=== PATIENT | female | born 1940 | race Caucasian/White ===

== ENCOUNTER 2016-07-19 12:33 | Observation (INO) | payer MEDICARE ==
[~2016-07-19] VITALS: Ht 167.6 cm; Wt 71.0 kg
--- NOTE | 2016-07-19 12:34 | NUR ---
Arrival: Pt wheeled to ED 3, EKG done upon arrival to room. 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 Assessment as charted.
[2016-07-19] MEDS ORDERED: ASPIRIN ONE (12:47)
[2016-07-19] MEDS ORDERED: ASPIRIN PO STA (12:47)
--- NOTE | 2016-07-19 12:51 | ER.PDOC ---
General Chief Complaint: Chest Pain-Cardiac Nature Stated Complaint: CHEST PAIN Time seen by MD: 12:50 Source: patient Exam Limitations: no limitations History of Present Illness Initial Comments Chest pain Timing/Duration: 1-3 hours Severity/Quality: moderate Radiation: jaw Nitro Today/Relief: 0.4 mg x 1 Aspirin Today: 325 mg x 1 Associated Symptoms: denies symptoms Allergies: Coded Allergies: No Known Allergies (Unverified , 07/19/16) Home Meds Reported Medications Aspirin (ASPIRIN) 81 Mg Tab.chew, 1 TAB PO DAILY, #30 TAB 3 Refills 07/19/16 Cyclosporine (RESTASIS) 1 Each Droperette, 1 EACH OP DAILY 07/19/16 Ranitidine Hcl (RANITIDINE HCL) 300 Mg Capsule, 1 CAP PO DAILY, #30 CAP 3 Refills 07/19/16 Clonidine Hcl (CLONIDINE HCL) 0.1 Mg Tablet, 1 TAB PO HS, #30 TAB 2 Refills 07/19/16 Amlodipine Besylate (AMLODIPINE BESYLATE) 5 Mg Tablet, 1 TAB PO DAILY, #30 TAB 5 Refills 07/19/16 Pitavastatin Calcium (LIVALO) 1 Mg Tablet, 1 MG PO DAILY, TABLET 07/19/16 Esomeprazole Magnesium (NEXIUM) 20 Mg Capsule.dr, 1 CAP PO DAILY, #30 CAP 2 Refills 07/19/16 Past Medical History Medical History: high cholesterol, hypertension Surgical History: hysterectomy LMP (females 10-50): hysterectomy Social History Smoking: non-smoker Alcohol Use: occassionally Drug Use: none Constitutional: no symptoms reported Respiratory: no symptoms reported Cardiovascular: see HPI Gastrointestinal: no symptoms reported Genitourinary: no symptoms reported Musculoskeletal: no symptoms reported All Other Systems: Reviewed and Negative Physical Exam General Appearance: No Apparent Distress, WD/WN Neck: Non-Tender, Full Range of Motion, Supple, Normal Inspection Respiratory: chest non-tender, lungs clear, normal breath sounds, no respiratory distress, no accessory muscle use Cardiovascular: Normal Peripheral Pulses, Regular Rate, Rhythm, No Edema, No Gallop, No JVD, No Murmur Gastrointestinal: Normal Bowel Sounds, No Organomegaly, No Pulsatile Mass, Non Tender, Soft Extremities: Normal Range of Motion, Non-Tender, Normal Inspection, No Pedal Edema, No Calf Tenderness, Normal Capillary Refill 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 Okeefe Problem Qualifiers Primary Impression: Chest pain Chest pain type: unspecified Qualified Codes: R07.9 - Chest pain, unspecified KEARA CONNER MD July 19, 2016 12:51
[2016-07-19] MEDS ORDERED: CLON0.1T PO (12:56)
[2016-07-19] MEDS ORDERED: ESOM20CA PO (12:56)
[2016-07-19] MEDS ORDERED: PITA1TAB PO (12:56)
[2016-07-19] MEDS ORDERED: CYCL1DRO OP (12:56)
[2016-07-19] MEDS ORDERED: RANI300C PO (12:56)
[2016-07-19] MEDS ORDERED: ASPI81TA2 PO (12:56)
[2016-07-19] MEDS ORDERED: AMLO5TAB2 PO (12:56)
[2016-07-19 12:57] LABS: BASOPHIL # 0.1 10^3/uL (0.0-0.1); EOSINOPHIL # 0.2 10^3/uL (0.0-0.2); EOSINOPHIL % 2.9 % (0.0-5.0); HEMATOCRIT 38.3 % (36.0-46.0); HEMOGLOBIN 12.8 g/dL (12.0-15.0); LYMPHOCYTES # 1.7 10^3/uL (1.0-4.8); LYMPHOCYTES % 29.7 % (24.0-44.0); MEAN CELL HGB 29.4 pg (26-34); MEAN CELL HGB CONCENTRATION 33.4 g/dL (33-37); MONOCYTES # 0.5 10^3/uL (0.3-0.8); MONOCYTES % 8.1 % (5.0-12.0); NEUTROPHIL # 3.4 10^3/uL (1.8-7.7); NEUTROPHILS % 58.1 % (41.0-85.0); RED CELL DISTRIBUTION WIDTH 13.5 % (11.5-14.5); WHITE BLOOD CELL 5.8 10^3/uL (4.5-11.0)
[2016-07-19] MEDS ORDERED: NITROSTAT SL PRN (13:00)
[2016-07-19 13:22] LABS: ALANINE AMINOTRANSFERASE 33 U/L (12-78); ALKALINE PHOSPHATASE 67 U/L (50-136); ASPARTATE AMINO TRANSFERASE 24 U/L (0-35); CARBON DIOXIDE 28.2 mmol/L (20.0-32); GLUCOSE 93 mg/dL (70-110)
--- NOTE | 2016-07-19 13:34 | DIREP ---
PROCEDURE:CHEST 1 VIEW COMPARISON:None. INDICATIONS:Chest pain FINDINGS: LUNGS/PLEURA:No significant pulmonary parenchymal abnormalities. No effusions. VASCULATURE:Normal. Unremarkable pulmonary vasculature. CARDIAC:Normal. No cardiac silhouette abnormality or cardiomegaly. MEDIASTINUM:Normal. No visible mass or adenopathy. BONES:Normal. No fracture or visible bony lesion. OTHER:Negative. CONCLUSION:No acute cardiopulmonary findings. Dictated by: Min Arevalo M.D. on 07/19/2016 at 01:33 PM
--- NOTE | 2016-07-19 14:05 | PRM.ACF1 ---
Date and Time Date and Time Time: 14:05 Admission Criteria Forms CHEST PAIN: OBSERVATION CARE USE THIS FORM ONLY WHEN INPATIENT ADMISSION CRITERIA ARE NOT MET. (Place X for any and all applicable criteria): Placement for observation care may be appropriate for a patient with chest pain and ANY ONE of the following (1)(2)(3)(4)(5): [x]I. Suspected cardiac ischemia with nondiagnostic initial evaluation (eg, ECG, cardiac biomarkers) requiring further immediate evaluation such as stress testing and repeat laboratory testing to clarify diagnosis []II. Other suspected diagnosis requiring observation and monitoring during diagnostic evaluation (eg, pulmonary embolus, aortic dissection, pneumothorax, pericarditis, GI bleeding) (6)(7)(8)(9) []III. Other observation care needs (Use General Criteria: Observation Care) The original [facility] [employer] content created by [facility] has been revised. The portions of the content which have been revised are identified through the use of italic text, and [facility] has neither reviewed nor approved the modified material. All other unmodified content is copyright [facility]. Please see references footnoted in the original [facility] [employer] edition 2016 KEARA CONNER MD July 19, 2016 14:05
--- NOTE | 2016-07-19 14:40 | NUR ---
Pt on unit Pt arrived to unit via wheelchair. Received report and assumed care of pt. Oriented pt to room. Fluids and snacks provided. TELE monitor applied to pt. Call light within reach. Will continue to monitor pt.
[2016-07-19 15:08] VITALS: BP 133/66
--- NOTE | 2016-07-19 18:21 | NUR ---
report received report from offgoing shift
[2016-07-19 19:37] VITALS: BP 118/69
--- NOTE | 2016-07-19 20:38 | HPH ---
ADMIT DATE: 07/19/2016 The patient is being placed under observation to Med-Surg. PRIMARY CARE PHYSICIAN: Cory Julien MD ADMITTING DIAGNOSES: 1. Chest pain with jaw pain. 2. Hypertension and hyperlipidemia. CHIEF COMPLAINT: Chest pain. HISTORY OF PRESENT ILLNESS: The patient is a very pleasant 76-year-old female who was baking a cake this morning and she started to have pain in her central jaw that started to go down her throat and into her chest. She described the pain initially as sharp pain and after that it felt like she had a lot of pressure in her chest. It stayed there and the paramedics were called and she was taken to the ER. By the time she came to the ER, the chest pain did resolve. She states that she has had prior pains in her jaw and neck before on and off, but it never went down to her chest to cause this degree of pain. She denies any fevers, no chills. The pain did not radiate down her arm. No nausea, no vomiting, no abdominal pain, no diarrhea, no constipation, no hematemesis, no hemoptysis, no melena, no hematochezia, no dysuria, no joint issues. No lethargy, no syncope reported. PAST MEDICAL HISTORY: Significant for hypertension, hyperlipidemia. She had rheumatoid arthritis diagnosed back in 1992, but it appears that she is probably in remission. She had ulcerative colitis as well too back then. She has diverticulosis. She is postmenopausal. PAST SURGICAL HISTORY: She has had a remote history partial hysterectomy and she has had a colonoscopy in 2013 with 2 polyps removed. She has had cataract surgery recently. ALLERGIES: NO KNOWN DRUG ALLERGIES. MEDICATIONS: She is on include Nexium, Zantac, clonidine, amlodipine, pitavastatin and Restasis eyedrops. FAMILY HISTORY: There is high blood pressure in the family, there is heart disease in the family, but no premature heart disease reported. SOCIAL HISTORY: She does not smoke. No illicit drugs reported. PHYSICAL EXAMINATION: VITAL SIGNS: On admission were as follows: Temperature is 98.0, pulse rate 54, respirations 20, blood pressure 176/89, however, it did drop to 133/66 and O2 sats of 98%. My physical exam is as follows: GENERAL: She is chest pain free now in no acute distress. HEENT: Oropharynx is clear. Moist mucous membranes noted. NECK: Supple. HEART: She had a 2/6 systolic murmur, most prominent in the right second intercostal space. She had an accentuated S2 with a slight diastolic murmur as well after that. PMI was not laterally displaced. LUNGS: Clear bilaterally. ABDOMEN: Good bowel sounds, soft abdomen. No rebound or guarding. EXTREMITIES: No pitting edema, 2+ distal pulses are noted. SKIN: Warm and dry. No rashes noted. LABORATORY DATA: Labs were drawn. Chemistries were normal. Cardiac enzymes negative x 1. Coags were normal. D-dimer is less than 0.19. CBC was normal. IMAGING STUDIES: Chest x-ray had no acute problems. EKG just showed first-degree AV block, sinus rhythm. ASSESSMENT: We have this female with chest pain with cardiac risk factors. We will go ahead and do serial cardiac enzymes, put her on telemetry overnight and check an H. pylori on her and we will follow her clinically and see how she does. Ana Okeefe MD DR: KELLY/yoli JOB# [id number]
[2016-07-19] MEDS ORDERED: CATAPRES PO SCH (21:00)
[2016-07-19] MEDS ORDERED: CATAPRES ONE (21:07)
[2016-07-20] VITALS: BP 117/59
[2016-07-20 04:00] VITALS: BP 115/58
--- NOTE | 2016-07-20 07:00 | NUR ---
report report given to o/c shift
--- NOTE | 2016-07-20 07:01 | NUR ---
REPORT RECEIVED FROM MEG CURIEL.
--- NOTE | 2016-07-20 07:45 | NUR ---
ASSESSMENT COMPLETED. PATIENT SITTING UP ON SIDE OF BED. DENIES PAIN OR DISCOMFORT. SKIN WARM AND DRY. RESPIRATIONS UNLABORED. TELE IN PLACE. PATIENT INDEPENDENT IN ROOM. DENIES COMPLAINTS OR UNMET NEEDS. SR UP X2. CALL LIGHT WITHIN REACH.
[2016-07-20 08:00] VITALS: BP 105/50
[2016-07-20] MEDS ORDERED: ASPIRIN PO SCH (09:00)
[2016-07-20] MEDS ORDERED: NORVASC PO SCH (09:00)
[2016-07-20] MEDS ORDERED: PROTONIX PO SCH (09:00)
[2016-07-20] MEDS ORDERED: PEPCID PO SCH (09:00)
[2016-07-20] MEDS ORDERED: RESTASIS OP SCH (09:00)
[2016-07-20] MEDS ORDERED: ASPIRIN EC PO SCH (09:00)
--- NOTE | 2016-07-20 09:30 | NUR ---
PATIENT SITTING UP VISITING WITH FAMILY. REPORTS NOT EXPERIENCING CHEST PAIN OR DISCOMFORT SINCE LEAVING ER. TELE IN PLACE. RESPIRATIONS UNLABORED. NO DISTRESS NOTED.
[2016-07-20] MEDS ORDERED: ASPIRIN ONE (09:36)
--- NOTE | 2016-07-20 11:00 | NUR ---
PATIENT INDEPENDENT IN ROOM. DENIES COMPLAINTS OR CONCERNS.
--- NOTE | 2016-07-20 12:45 | NUR ---
DISCHARGE INSTRUCTIONS GIVEN TO PATIENT. IV DISCONTINUED. PATIENT DISCHARGED WITH FAMILY. PATIENT AMBULATED OUT TO PERSONAL VEHICLE.
[2016-07-20 12:50] VITALS: BP 105/50
--- NOTE | 2016-07-20 19:56 | DSH ---
DATE OF DISCHARGE: 07/20/2016 ADMITTING DIAGNOSES: 1. Chest pain. 2. Hypertension with hyperlipidemia. DISCHARGE DIAGNOSES: Chest pain, resolved with hypertension and hyperlipidemia and GERD. HOSPITAL COURSE: The patient is a pleasant 76-year-old female who came in with an atypical story for chest pain. She had some neck pain and radiating down to her chest. By the time she came to the ER, she was chest pain free. I put her in the hospital overnight. Three sets of cardiac enzymes have been negative. EKG has sinus rhythm with no ST segment changes. She is chest pain free. She does have history of GERD and I explained to her that we needed to take a look at her heart first given the fact that she does have cardiac risk fractures. At this point, she is stable. She will be discharged. I have asked her to resume her home activity and home diet. I have asked her to follow up with her erp consultant, Dr. Martin to see if he thinks she needs a stress test at that point and a cardiac workup and if the cardiac workup is negative, I explained to her that the next step is to take a look at her GI system and to follow up with her primary care physician, Dr. Julien for referrals to get scoped if that is the case. Ana Okeefe MD DR: KELLY/yoli JOB# [id number] CC: Cory Martin MD
[2016-07-21] MEDS ORDERED: ASPIRIN EC PO SCH (09:00)
== END 2016-07-20 13:00 | disposition home or self-care (01) ==
LOC: ER 12:33 → MS 14:08
PROVIDERS: ADMIT Pediatrics; ATTEND Pediatrics
DX: R07.89 Other chest pain (principal); I10 Essential (primary) hypertension; E78.5 Hyperlipidemia, unspecified; R68.84 Jaw pain; E78.00 Pure hypercholesterolemia, unspecified; K21.9 Gastro-esophageal reflux disease without esophagitis; M54.2 Cervicalgia; Z82.49 Family history of ischemic heart disease and other diseases of the circulatory system
CPT/HCPCS: 36415 ×2; 71010; 80053; 82550; 83880; 84484 ×3; 85025; 85379; 85610; 85730; 86677; 93005; 99285; G0378 ×23

== ENCOUNTER → 2016-12-03 | Outpatient (CLI) | payer MEDICARE ==
[~2016-12-03] MED LIST: AMLO5TAB2 PO; ASPI81TA2 PO; CLON0.1T PO; CYCL1DRO OP; ESOM20CA PO; PITA1TAB PO; RANI300C PO
[2016-12-03 12:05] LABS: CALCIUM 9.6 mg/dL (8.4-10.5); CARBON DIOXIDE 29.5 mmol/L (20.0-32)
== END | disposition home or self-care (01) ==
LOC: LAB 11:13
PROVIDERS: ATTEND Internal Medicine Cardiovascular Disease
DX: E78.00 Pure hypercholesterolemia, unspecified (principal); E78.2 Mixed hyperlipidemia
CPT/HCPCS: 36415; 80053; 80061

== ENCOUNTER → 2017-02-03 | Outpatient (CLI) | payer MEDICARE ==
[~2017-02-03] MED LIST changes: +ASPI-667 PO; -ASPI81TA2 PO
[2017-02-03 11:37] LABS: CALCIUM 9.4 mg/dL (8.4-10.5); CARBON DIOXIDE 28.1 mmol/L (20.0-32)
== END | disposition home or self-care (01) ==
LOC: LAB 10:31
PROVIDERS: ATTEND Internal Medicine Cardiovascular Disease
DX: E78.00 Pure hypercholesterolemia, unspecified (principal); E78.2 Mixed hyperlipidemia
CPT/HCPCS: 36415; 80053; 80061

== ENCOUNTER → 2017-08-03 | Outpatient (CLI) | payer MEDICARE ==
[2017-08-03 10:19] LABS: CALCIUM 9.4 mg/dL (8.4-10.5); CARBON DIOXIDE 29.4 mmol/L (20.0-32)
== END | disposition home or self-care (01) ==
LOC: LAB 09:35
PROVIDERS: ATTEND Internal Medicine Cardiovascular Disease
DX: E78.00 Pure hypercholesterolemia, unspecified (principal); E78.2 Mixed hyperlipidemia
CPT/HCPCS: 36415; 80053; 80061

== ENCOUNTER → 2017-11-30 | Outpatient (CLI) | payer MEDICARE ==
[~2017-11-30] MED LIST changes: -AMLO5TAB2 PO; +AMLO5TAB7 PO
[2017-11-30 10:39] LABS: CALCIUM 9.2 mg/dL (8.4-10.5)
== END | disposition home or self-care (01) ==
LOC: LAB 10:08
PROVIDERS: ATTEND Internal Medicine Cardiovascular Disease
DX: E78.00 Pure hypercholesterolemia, unspecified (principal); E78.2 Mixed hyperlipidemia; I10 Essential (primary) hypertension; K21.9 Gastro-esophageal reflux disease without esophagitis
CPT/HCPCS: 36415; 80053; 80061

== ENCOUNTER 2018-01-10 17:54 | Emergency (ER) | payer MEDICARE ==
[~2018-01-10] VITALS: Ht 165.1 cm; Wt 71.7 kg
--- NOTE | 2018-01-10 18:10 | NUR ---
ARRIVAL PT ARRIVED AMBULATORY TO ER 4 C/O POSSIBLE UTI. PT STATES BEGAN HAVING DYSURIA AND FLANK PAIN YESTERDAY. NO ACUTE DISTRESS NOTED. EDP NOTIFIED OF PT ARRIVAL.
[2018-01-10 18:21] VITALS: BP 164/72
[2018-01-10] MEDS ORDERED: ZOFRAN ODT SL STA (18:28)
[2018-01-10] MEDS ORDERED: NORCO 10MG PO STA (18:28)
[2018-01-10] MEDS ORDERED: ROCEPHIN IM IM STA (18:28)
[2018-01-10] MEDS ORDERED: MOTRIN PO STA (18:28)
[2018-01-10] MEDS ORDERED: ROCEPHIN ONE (18:34)
[2018-01-10] MEDS ORDERED: ZOFRAN ODT ONE (18:34)
[2018-01-10] MEDS ORDERED: NORCO 10MG PO ONE (18:35)
[2018-01-10] MEDS ORDERED: MOTRIN ONE (18:35)
[2018-01-10 18:45] LABS: BASOPHIL % 0.3 % (0.0-0.2); EOSINOPHIL # 0.1 10^3/uL (0.0-0.2); HEMOGLOBIN 12.6 g/dL (12.0-15.0); LYMPHOCYTES # 0.9 10^3/uL (1.0-4.8); LYMPHOCYTES % 7.4 % (24.0-44.0); MEAN CELL HGB 29.1 pg (26-34); MEAN CORP VOLUME 88.2 fL (78-100); MEAN PLATELET VOLUME 9.8 fL (7.8-11.0); MONOCYTES # 0.7 10^3/uL (0.3-0.8); MONOCYTES % 6.3 % (5.0-12.0); NEUTROPHIL # 9.8 10^3/uL (1.8-7.7); NEUTROPHILS % 84.7 % (41.0-85.0); RED CELL DISTRIBUTION WIDTH 13.4 % (11.5-14.5); WHITE BLOOD CELL 11.6 10^3/uL (4.5-11.0)
[2018-01-10 18:53] LABS: BILIRUBIN,URINE 3 MG/DL (NEGATIVE)
[2018-01-10 18:56] LABS: CALCIUM 9.3 mg/dL (8.4-10.5)
--- NOTE | 2018-01-10 19:01 | ER.PDOC ---
General Chief Complaint: Female Urogenital Problems Stated Complaint: POSS UTI Time seen by MD: 19:00 Source: patient Exam Limitations: no limitations History of Present Illness Timing/Duration: just prior to arrival Severity/Quality: mild LMP (females 10-50): postmenopause Sexual Bell History: not active Contraceptive: none Associated Symptoms: denies symptoms Prior symptoms/Treatment: Similar symptoms previous Allergies: Coded Allergies: No Known Allergies (Unverified , 07/19/16) Home Meds Reported Medications Aspirin (ASPIRIN) 81 Mg Tab.chew, 1 TAB PO DAILY, #30 TAB 3 Refills 07/19/16 Cyclosporine (RESTASIS) 1 Each Droperette, 1 EACH OP DAILY 07/19/16 Ranitidine Hcl (RANITIDINE HCL) 300 Mg Capsule, 1 CAP PO DAILY, #30 CAP 3 Refills 07/19/16 Clonidine Hcl (CLONIDINE HCL) 0.1 Mg Tablet, 1 TAB PO HS, #30 TAB 2 Refills 07/19/16 Amlodipine Besylate (AMLODIPINE BESYLATE) 5 Mg Tablet, 1 TAB PO DAILY, #30 TAB 5 Refills 07/19/16 Pitavastatin Calcium (LIVALO) 1 Mg Tablet, 1 MG PO DAILY, TABLET 07/19/16 Esomeprazole Magnesium (NEXIUM) 20 Mg Capsule.dr, 1 CAP PO DAILY, #30 CAP 2 Refills 07/19/16 Past Medical History Medical History: hypertension Surgical History: other LMP (females 10-50): postmenopause Social History Smoking: non-smoker Alcohol Use: none Drug Use: none Reviewed Nursing Reviewed: Vital Signs, Abn. 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, No Motor/Sensory Deficits, Alert, Normal Mood/Affect, Oriented x 3 Skin: Normal Color, Warm/Dry Lymphatic: No Adenopathy Results/Orders Results/Orders Laboratory Tests Test 01/10/18 18:10 01/10/18 18:35 Urine Collection Type UNKNOWN Urine Color DARK YELLOW (YELLOW) Urine Appearance SLIGHTLY CLOUDY (CLEAR) Urine Bilirubin 3 MG/DL (NEGATIVE) Urine Ictotest NEGATIVE (NEGATIVE) Urine Ketones NEGATIVE (NEGATIVE) Urine Specific [place] 1.000 (1.005-1.035) Urine pH 7 (5.0-6.0) Urine Protein 100 mg/dL (NEGATIVE) Urine Urobilinogen 8.0 (NEGATIVE) Urine Nitrate POSITIVE (NEGATIVE) Urine Leukocyte Esterase 500/uL 2+ (NEGATIVE) Urine Blood 50 2+ (NEGATIVE) Urine RBC 2-5 RBC/HPF (NONE SEEN) Urine WBC TNTC WBC/HPF (0-2) Urine Squamous Epithelial Cells NONE SEEN #/HPF (FEW) Urine Bacteria FEW (NONE SEEN) Urine Glucose NORMAL (NEGATIVE) White Blood Count 11.6 10^3/uL (4.5-11.0) Red Blood Count 4.33 10^6/uL (4.00-5.20) Hemoglobin 12.6 g/dL (12.0-15.0) Hematocrit 38.2 % (36.0-46.0) Mean Corpuscular Volume 88.2 fL (78-100) Mean Corpuscular Hemoglobin 29.1 pg (26-34) Mean Corpuscular Hemoglobin Concent 33.0 g/dL (33-37) Red Cell Distribution Width 13.4 % (11.5-14.5) Platelet Count 282 10^3/uL (150-400) Mean Platelet Volume 9.8 fL (7.8-11.0) Neutrophils (%) (Auto) 84.7 % (41.0-85.0) Lymphocytes (%) (Auto) 7.4 % (24.0-44.0) Monocytes (%) (Auto) 6.3 % (5.0-12.0) Neutrophils # (Auto) 9.8 10^3/uL (1.8-7.7) Lymphocytes # (Auto) 0.9 10^3/uL (1.0-4.8) Monocytes # (Auto) 0.7 10^3/uL (0.3-0.8) Absolute Immature Granulocyte (auto 0.03 10^3 u/L (0-2) Eosinophils % 1.0 % (0.0-5.0) Basophils % 0.3 % (0.0-0.2) Basophils # 0.0 10^3/uL (0.0-0.1) Eosinophil Count 0.1 10^3/uL (0.0-0.2) Prothrombin Time 9.4 SEC (9.8-11.9) Prothrombin Time INR (Non-Therap) 0.9 Activated Partial Thromboplast Time 25.0 SEC (24.67-30.72) Sodium Level 140 mmol/L (132-145) Potassium Level 3.5 mmol/L (3.6-5.2) Chloride Level 102.0 mmol/L (96-109) Carbon Dioxide Level 28.0 mmol/L (20.0-32) Anion Gap 13.5 Blood Urea Nitrogen 10 mg/dL (7-18) Creatinine 0.74 mg/dL (0.59-1.40) Estimated GFR () 92.6 (>/=60) BUN/Creatinine Ratio 13.0 Glucose Level 109 mg/dL (70-110) Calcium Level 9.3 mg/dL (8.4-10.5) Total Bilirubin 0.2 mg/dL (0.2-1.0) Aspartate Amino Transf (AST/SGOT) 17 U/L (0-35) Alanine Aminotransferase (ALT/SGPT) 28 U/L (12-78) Alkaline Phosphatase 73 U/L (50-136) Total Protein 7.6 g/dL (6.4-8.2) Albumin 4.0 g/dL (3.4-5.0) Globulin 3.6 Amylase Level 51 U/L (25-115) Lipase 114 U/L (114-286) Percent Immature Gran (Cell Imm) 0.30 % (0.00-0.50) Helicobacter pylori Screen NEGATIVE (NEGATIVE) Administered Medications Medications (Trade) Dose Ordered Sig/David Route PRN Reason Start Time Stop Time Status Last Admin Dose Admin Ceftriaxone Sodium (Rocephin Im) 1,000 mg STAT STAT IM 01/10/18 18:28 01/10/18 18:30 DC 01/10/18 18:47 Acetaminophen/ Hydrocodone Bitart ([place] 10mg) 1 each STAT STAT PO 01/10/18 18:28 01/10/18 18:30 DC 01/10/18 18:47 Ondansetron HCl (Zofran Odt) 4 mg STAT STAT SL 01/10/18 18:28 01/10/18 18:30 DC 01/10/18 18:48 Ibuprofen (Motrin) 800 mg STAT STAT PO 01/10/18 18:28 01/10/18 18:30 DC 01/10/18 18:47 Departure Time of Disposition: 19:28 Disposition: 01 HOME, SELF-CARE Impression: Primary Impression: UTI (urinary tract infection) Condition: Stable Referrals: VALENTINA ANDRES MD (PCP) PRIMARY CARE PROVIDER Duration or Time Spent with Pa: 20 ZAID PARADA MD Jan 10, 2018 19:01 CARLOS ROBERT MD Jan 10, 2018 19:29
[2018-01-10 19:05] LABS: APPEARANCE,URINE SLIGHTLY CLOUDY (CLEAR); UA COLOR DARK YELLOW (YELLOW)
[2018-01-10 19:21] VITALS: BP 119/53
[2018-01-10] MEDS ORDERED: LEVAQUIN PO STA (19:47)
[2018-01-10 19:55] VITALS: BP 119/53
[2018-01-10] MEDS ORDERED: TORADOL IM ONE (20:00)
== END 2018-01-10 19:50 | disposition home or self-care (01) ==
LOC: ER 17:54
DX: N39.0 Urinary tract infection, site not specified (principal); I10 Essential (primary) hypertension; R79.1 Abnormal coagulation profile; Z79.82 Long term (current) use of aspirin; Z79.899 Other long term (current) drug therapy
CPT/HCPCS: 36415; 80053; 81000; 82150; 83690; 85025; 85610; 85730; 86677; 87086; 96372; 99284; J0696; Q0162

== ENCOUNTER → 2018-05-24 | Outpatient (CLI) | payer MEDICARE ==
[~2018-05-24] MED LIST changes: +AMLO5TAB10 PO; -AMLO5TAB7 PO
[2018-05-24 12:49] LABS: CALCIUM 9.1 mg/dL (8.4-10.5); CARBON DIOXIDE 30.4 mmol/L (20.0-32)
== END | disposition home or self-care (01) ==
LOC: LAB 11:54
PROVIDERS: ATTEND Internal Medicine Cardiovascular Disease
DX: E78.00 Pure hypercholesterolemia, unspecified (principal); E78.2 Mixed hyperlipidemia
CPT/HCPCS: 36415; 80053; 80061

== ENCOUNTER → 2018-07-21 | Outpatient (CLI) | payer MEDICARE ==
--- NOTE | 2018-07-21 12:28 | DIREP ---
PROCEDURE:XRAY SPINE LUMBAR 2-3 VWS COMPARISON:None. INDICATIONS:LOW BACK PAIN FINDINGS: ALIGNMENT:Normal. VERTEBRAE:No fractures. Anterior osteophyte formation from L2 through L5. DISK SPACES:Mild narrowing from L1-L2 through L4-L5. SACROILIAC JOINTS:Normal. OTHER:Mild arterial calcifications. CONCLUSION: 1. No acute abnormalities. 2. Mild degenerative changes from L1 through L5. 3. Atherosclerosis. Dictated by: Wilmer Hernández M.D. on 07/21/2018 at 12:25 PM
== END | disposition home or self-care (01) ==
LOC: RAD 11:25
PROVIDERS: ATTEND Pediatrics
DX: M47.816 Spondylosis without myelopathy or radiculopathy, lumbar region (principal); I70.0 Atherosclerosis of aorta; M25.78 Osteophyte, vertebrae
CPT/HCPCS: 72100

== ENCOUNTER → 2018-11-12 | Outpatient (CLI) | payer MEDICARE ==
--- NOTE | 2018-11-12 12:53 | DIREP ---
PROCEDURE:MR KNEE WITHOUT CONTRAST [Left] TECHNIQUE:Multi-planar MR images of the left knee were obtained without contrast. COMPARISON:None. INDICATIONS:STRESS FX FINDINGS: MENISCI:Large radial tear posterior horn and root of medial meniscus with horizontal tear extending into the posterior horn and body medial meniscus. Medial meniscal body is extruded along the joint line. Extensive degenerative signal seen in the lateral meniscus without articular interruption to suggest tear. CRUCIATE LIGAMENTS:Anterior and posterior cruciate ligaments demonstrate normal signal and morphology. COLLATERAL LIGAMENTS:The medial collateral ligament and lateral collateral ligamentous complex are intact. HYALINE CARTILAGE:Moderate diffuse medial joint compartment chondral thinning with areas of full-thickness fissuring. Mild lateral joint compartment articular cartilage thinning with scattered fissures. PATELLOFEMORAL:Partial-thickness chondral fissuring of the lateral patellar facet without full-thickness defects seen. Full-thickness chondral fissuring inferior trochlear sulcus. Quadriceps and patellar tendons are intact. BONES:Focal subchondral impaction fracture medial margin of the medial tibial plateau measuring 1.6 x 1.4 cm with surrounding edema. No depression fracture seen. Remainder of marrow signal is age appropriate. OTHER:Large joint effusion. Synovitis. Large septated Cheek's cyst measuring 3.2 x 2.7 x 6.7 cm AP/transverse/craniocaudal. Medial gastrocnemius tendon origin appears thickened with interstitial edema in the medial gastrocnemius muscle. CONCLUSION: 1. Subchondral impaction fracture medial tibial plateau. 2. Large radial tear medial meniscus. 3. Chondral loss and fissuring. 4. Large joint effusion. Synovitis. Large septated Cheek's cyst. 5. Question reactive edema versus grade 1 medial gastrocnemius strain. Dictated by: Prakash Herbert M.D. on 11/12/2018 at 12:40 PM
== END | disposition home or self-care (01) ==
LOC: MRI 10:05
PROVIDERS: ATTEND Orthopaedic Surgery
DX: S82.142A Displaced bicondylar fracture of left tibia, initial encounter for closed fracture (principal); S83.242A Other tear of medial meniscus, current injury, left knee, initial encounter; M25.462 Effusion, left knee; M65.862 Other synovitis and tenosynovitis, left lower leg; X58.XXXA Exposure to other specified factors, initial encounter; Y93.89 Activity, other specified; Y92.89 Other specified places as the place of occurrence of the external cause; Y99.8 Other external cause status
CPT/HCPCS: 73721

== ENCOUNTER → 2018-11-26 | Day surgery (SDC) | payer MEDICARE ==
[2018-11-24 11:18] VITALS: BP 136/80
--- NOTE | 2018-11-24 11:37 | PCM.EKG ---
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
[2018-11-24 13:10] LABS: BASOPHIL % 0.6 % (0.0-0.2); EOSINOPHIL # 0.1 10^3/uL (0.0-0.2); EOSINOPHIL % 1.8 % (0.0-5.0); HEMOGLOBIN 13.1 g/dL (12.0-15.0); LYMPHOCYTES # 1.6 10^3/uL (1.0-4.8); MEAN CELL HGB 29.8 pg (26-34); MEAN CELL HGB CONCENTRATION 33.1 g/dL (33-37); MEAN PLATELET VOLUME 9.1 fL (7.8-11.0); MONOCYTES # 0.7 10^3/uL (0.3-0.8); MONOCYTES % 10.6 % (5.0-12.0); NEUTROPHILS % 61.7 % (41.0-85.0); RED CELL DISTRIBUTION WIDTH 13.9 % (11.5-14.5); WHITE BLOOD CELL 6.5 10^3/uL (4.5-11.0)
[2018-11-24 13:28] LABS: CALCIUM 9.6 mg/dL (8.4-10.5); CARBON DIOXIDE 26.7 mmol/L (20.0-32)
[2018-11-26] VITALS (11 sets, daily range): BP systolic 142–253; BP diastolic 61–87
[~2018-11-26] VITALS: Ht 165.1 cm; Wt 64.0 kg
[~2018-11-26] MED LIST changes: +ACET-685 PO; +ANCEF ONE; +CALC-599 PO; +DECADRON ONE; +DILAUDID IV PRN; +DILAUDID ONE; +DIPRIVAN IV ONE; +EPHEDRINE SULFATE ONE; +EZET10TA20 PO; +LACTATED RINGERS 1,000 ML IV SCH; +LACTATED RINGERS 1,000 ML SCH; +LIDOCAINE 2% VIAL ONE; +MULT-285 PO; +NS 100ML 100 ML IV ONE; +NS 3000ML IRR IR ONE; +OMEP40CA41 PO; +POTA20TA14 PO; +REGLAN IV PRN; +SODIUM CHLORIDE IR ONE; +SUBLIMAZE IV PRN; +SUBLIMAZE ONE; +TORADOL ONE; +TYLENOL #3 PO ONE; +UBID100C23 PO; +XYLOCAINE 2%-EPI 1:100,000 ONE; +ZOFRAN ONE
--- NOTE | 2018-11-26 12:19 | OPH ---
DATE OF SURGERY: 11/26/2018 PREOPERATIVE DIAGNOSES: 1. Medial meniscal tear of the left knee. 2. A fracture of the medial tibial plateau (insufficiency fracture). POSTOPERATIVE DIAGNOSES: 1. Medial meniscal tear of the left knee. 2. A fracture of the medial tibial plateau (insufficiency fracture). OPERATIVE PROCEDURES: 1. Arthroscopy of the left knee with a partial medial meniscectomy. 2. Subchondroplasty of the medial tibial plateau fracture (internal fixation of subchondral tibial plateau fracture with arthroscopic assistance). SURGEON: Ebenezer Salinas MD ANESTHESIA: LMA. TOURNIQUET TIME: None. BLOOD LOSS: 10 mL. DESCRIPTION OF INDICATIONS: The patient is a 78-year-old female who has had medial-sided left knee pain since stepping off a curb in July of this year, feeling the large pop about the left knee. She has had pain medially about the knee. Since then, it is no better with physical therapy, bracing, cortisone injections or limited weightbearing. The patient has a full range of motion about the knee. She does have some tenderness about the medial joint line to palpation, but she is exquisitely tender about the medial tibial plateau anteriorly. Her plain x-rays show some mild arthritic changes medially. The MRI scan shows that she has a tear of the posterior horn of the medial meniscus with a subchondral fracture of the medial tibial plateau, which corresponds with the area of tenderness. Because of continued pain, the patient was taken to the operating room today for the above procedures. DESCRIPTION OF PROCEDURE: This patient was placed on the operating table in the supine position. LMA anesthetic was induced without difficulty. The patient had the left thigh padded and the left lower extremity was sterilely prepped and draped. The patient then had the arthroscopy portals made superolateral, anterolateral and anteromedial. The arthroscope was introduced into the suprapatellar pouch. 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 Later in the case, a shaver was introduced and any loose articular cartilage about the patella was shaved. The medial and lateral gutters did not show any loose bodies. The medial compartment was entered. She had some grade 3 chondromalacia about the distal femur in an area of grade 4 chondromalacia about the posterior medial aspect of her tibia. There was a tear of the posterior horn of the medial meniscus that was excised using straight biters as well as a shaver. The intercondylar notch was viewed. The anterior and posterior cruciate ligaments were normal. The knee was placed in the [id number] position. The lateral meniscus was found to be normal as was the lateral articular cartilage proximally and distally. The arthroscopic equipment was removed from the knee. Using the C-arm, we identified the area of the fracture in the proximal tibia. The cannulated drill was then advanced into the fracture area. The calcium pyrophosphate was then injected. Once the calcium pyrophosphate had hardened, then the cannulated drill bit was removed. The arthroscope was placed back into the knee. There was no extravasation of the calcium pyrophosphate into the joint. The wounds were then all irrigated. They were closed with 3-0 Ethilon. A compressive dressing was applied. The patient was extubated in the operating room and sent to recovery in a stable condition. Ebenezer Salinas MD DR: PARKER/yoli JOB# [id number]
== END | disposition home or self-care (01) ==
LOC: SDC 05:55
PROVIDERS: ATTEND Orthopaedic Surgery
DX: M23.222 Derangement of posterior horn of medial meniscus due to old tear or injury, left knee (principal); M84.462A Pathological fracture, left tibia, initial encounter for fracture; M94.262 Chondromalacia, left knee; I10 Essential (primary) hypertension; E78.5 Hyperlipidemia, unspecified; M19.90 Unspecified osteoarthritis, unspecified site; K21.9 Gastro-esophageal reflux disease without esophagitis; Z79.82 Long term (current) use of aspirin; Z98.890 Other specified postprocedural states; Z79.899 Other long term (current) drug therapy; Z72.89 Other problems related to lifestyle; Z87.891 Personal history of nicotine dependence; Z98.41 Cataract extraction status, right eye; Z98.42 Cataract extraction status, left eye; Z90.710 Acquired absence of both cervix and uterus; Z82.49 Family history of ischemic heart disease and other diseases of the circulatory system; Z82.3 Family history of stroke; Z83.3 Family history of diabetes mellitus
CPT/HCPCS: 29855; 29881; 36415; 80053; 85025; 93005; A4217 ×2; J0690; J1100; J1170; J1885; J2001; J2405; J3010; J3490 ×2; J7050; 76000; C1713

== ENCOUNTER → 2019-02-08 | Outpatient (CLI) | payer MEDICARE ==
[~2019-02-08] MED LIST changes: -ANCEF ONE; -DECADRON ONE; -DILAUDID IV PRN; -DILAUDID ONE; -DIPRIVAN IV ONE; -EPHEDRINE SULFATE ONE; -LACTATED RINGERS 1,000 ML IV SCH; -LACTATED RINGERS 1,000 ML SCH; -LIDOCAINE 2% VIAL ONE; -NS 100ML 100 ML IV ONE; -NS 3000ML IRR IR ONE; -REGLAN IV PRN; -SODIUM CHLORIDE IR ONE; -SUBLIMAZE IV PRN; -SUBLIMAZE ONE; -TORADOL ONE; -TYLENOL #3 PO ONE; -XYLOCAINE 2%-EPI 1:100,000 ONE; -ZOFRAN ONE
[2019-02-08 09:18] LABS: CALCIUM 9.2 mg/dL (8.4-10.5); CARBON DIOXIDE 31.6 mmol/L (20.0-32)
== END | disposition home or self-care (01) ==
LOC: LAB 08:45
PROVIDERS: ATTEND Internal Medicine Cardiovascular Disease
DX: E78.00 Pure hypercholesterolemia, unspecified (principal); E78.2 Mixed hyperlipidemia
CPT/HCPCS: 36415; 80053; 80061

== ENCOUNTER → 2019-04-07 | Outpatient (CLI) | payer MEDICARE ==
[2019-04-07 12:03] LABS: MEAN CORP HGB 28.7 pg (26-34)
[2019-04-07 12:28] LABS: CALCIUM 9.8 mg/dL (8.4-10.5); CARBON DIOXIDE 29.9 mmol/L (20.0-32)
== END | disposition home or self-care (01) ==
LOC: LAB 11:48
PROVIDERS: ATTEND Nurse Practitioner Family
DX: I10 Essential (primary) hypertension (principal); R53.83 Other fatigue; Z79.899 Other long term (current) drug therapy
CPT/HCPCS: 36415; 80053; 80061; 82306; 83036; 84439; 84443; 84480; 85027

== ENCOUNTER → 2019-08-10 | Outpatient (CLI) | payer MEDICARE ==
[2019-08-10 11:23] LABS: CALCIUM 9.6 mg/dL (8.4-10.5); CARBON DIOXIDE 32.6 mmol/L (20.0-32)
== END | disposition home or self-care (01) ==
LOC: LAB 10:19
PROVIDERS: ATTEND Internal Medicine Cardiovascular Disease
DX: E78.2 Mixed hyperlipidemia (principal); E78.00 Pure hypercholesterolemia, unspecified
CPT/HCPCS: 36415; 80053; 80061

== ENCOUNTER → 2019-10-21 | Outpatient (CLI) | payer MEDICARE | END | disposition home or self-care (01) | LOC: LAB 12:03 | PROVIDERS: ATTEND Nurse Practitioner Family | DX: E11.9 Type 2 diabetes mellitus without complications (principal); E63.9 Nutritional deficiency, unspecified; Z79.899 Other long term (current) drug therapy | CPT/HCPCS: 36415; 82306; 83036 ==

== ENCOUNTER → 2020-02-08 | Outpatient (CLI) | payer MEDICARE ==
[~2020-02-08] MED LIST changes: +AMLO-169 PO; -AMLO5TAB10 PO
== END | disposition home or self-care (01) ==
LOC: LAB 14:24
PROVIDERS: ATTEND Nurse Practitioner Family
DX: R73.03 Prediabetes (principal); E55.9 Vitamin D deficiency, unspecified
CPT/HCPCS: 36415; 82306; 83036

== ENCOUNTER → 2020-02-09 | Outpatient (CLI) | payer MEDICARE ==
[2020-02-09 11:47] LABS: CALCIUM 9.3 mg/dL (8.4-10.5); CARBON DIOXIDE 28.8 mmol/L (20.0-32)
== END | disposition home or self-care (01) ==
LOC: LAB 11:15
PROVIDERS: ATTEND Internal Medicine Cardiovascular Disease
DX: E78.00 Pure hypercholesterolemia, unspecified (principal); E78.2 Mixed hyperlipidemia
CPT/HCPCS: 36415; 80053; 80061

== ENCOUNTER → 2020-08-02 | Outpatient (CLI) | payer OTHER ==
[~2020-08-02] MED LIST changes: -OMEP40CA41 PO; +OMEP40CA8 PO
[2020-08-02 09:58] LABS: CALCIUM 8.9 mg/dL (8.4-10.5); CARBON DIOXIDE 27.6 mmol/L (20.0-32)
== END | disposition home or self-care (01) ==
LOC: LAB 09:27
PROVIDERS: ATTEND Pediatrics
DX: E78.00 Pure hypercholesterolemia, unspecified (principal); E78.2 Mixed hyperlipidemia
CPT/HCPCS: 36415; 80053; 80061